=== PATIENT | female | born 1990 | race Two or more races ===

== ENCOUNTER 2023-01-21 07:34 | Emergency (ER) | payer OTHER ==
[~2023-01-21] VITALS: Ht 149.9 cm; Wt 62.6 kg
[2023-01-21 10:24] LABS: HEMATOCRIT 37.9 % (36.0-45.00); HEMOGLOBIN 13.1 g/dL (12.0-15.00); MEAN CELL VOLUME 94.9 fL (80.00-100.00); MEAN CORPUSCULAR HEMOGLOBIN 32.9 pg (27.00-32.0); MEAN CORPUSCULAR HGB CONC 34.6 g/dl (32.0-36.0); PLATELET COUNT 259 K/uL (150-450); RED CELL DISTRIBUTION WIDTH 12.6 % (11.5-14.5)
[2023-01-21 10:44] LABS: PH,URINE 6.5 (5.0-8.0); URINE APPEARANCE Clear; URINE BILIRRUBIN Negative (NEGATIVE); URINE BLOOD Negative; URINE COLOR Yellow; URINE GLUCOSE Negative (NEGATIVE); URINE LEUKOCYTE Trace; URINE NITRATE Negative; URINE PROTEIN Negative (NEGATIVE); URINE UROBILINOGEN 0.2 E.U./dl
[2023-01-21 10:45] LABS: URINE EPITHELIAL CELLS 54.8 uL (0.0-38.8); URINE RBC 10.7 uL (0.0-20.8); URINE WBC 12.5 uL (0.0-23.2)
[2023-01-21 11:20] LABS: CALCIUM 9.1 mg/dL (8.5-10.1); CREATININE SERUM 0.54 mg/dL (0.55-1.02); GFR 130.02; POTASSIUM 3.4 mEq/L (3.5-5.1)
== END 2023-01-21 15:36 | disposition home or self-care (01) ==
LOC: ER 07:34
PROVIDERS: General Practice
DX: O26.891 Other specified pregnancy related conditions, first trimester (principal); Z3A.12 12 weeks gestation of pregnancy; R10.2 Pelvic and perineal pain

== ENCOUNTER 2023-01-24 11:15 | Day surgery (SDC) | payer OTHER ==
[~2023-01-24] VITALS: Ht 149.9 cm; Wt 62.6 kg
[2023-01-24 09:07] LABS: HEMATOCRIT 36.6 % (36.0-45.00); HEMOGLOBIN 13.2 g/dL (12.0-15.00); MEAN CELL VOLUME 91.9 fL (80.00-100.00); MEAN CORPUSCULAR HGB CONC 35.9 g/dl (32.0-36.0); PLATELET COUNT 256 K/uL (150-450); RED BLOOD COUNT 3.98 M/uL (4.00-6.00); RED CELL DISTRIBUTION WIDTH 12.6 % (11.5-14.5)
[2023-01-24 09:08] LABS: URINE APPEARANCE Cloudy; URINE BILIRRUBIN Negative (NEGATIVE); URINE BLOOD Large; URINE COLOR Yellow; URINE GLUCOSE Negative (NEGATIVE); URINE LEUKOCYTE Trace; URINE NITRATE Negative; URINE PROTEIN Trace (NEGATIVE)
[2023-01-24 09:09] LABS: URINE EPITHELIAL CELLS 97.6 uL (0.0-38.8); URINE RBC 185.1 uL (0.0-20.8); URINE WBC 23.9 uL (0.0-23.2)
[2023-01-24 09:42] LABS: CALCIUM 8.9 mg/dL (8.5-10.1); CREATININE SERUM 0.55 mg/dL (0.55-1.02); GFR 127.29; POTASSIUM 3.62 mEq/L (3.5-5.1)
[2023-01-24 09:51] LABS: INR 1.06; PARTIAL THROMBOPLASTIN TIME 26.7 SECONDS (22.0-34.0); PROTHROMBIN TIME 11.1 SECONDS (9.0-11.5)
== END 2023-01-24 21:50 | disposition home or self-care (01) ==
LOC: O/R 11:15 → CIR.AMB 11:15 → SEC-K 11:15 → ER 11:15 → CIR.AMB 11:15 → SEC-K 14:35 → O/R 14:35 → CIR.AMB 21:50
PROVIDERS: ATTEND General Practice
DX: O02.1 Missed abortion (principal); O72.2 Delayed and secondary postpartum hemorrhage; Z20.822 Contact with and (suspected) exposure to COVID-19

== ENCOUNTER 2023-05-10 10:01 | Outpatient (CLI) | payer OTHER | END 2023-05-10 10:08 | disposition home or self-care (01) | LOC: SONOGRAMA 10:01 | PROVIDERS: ATTEND Specialist | DX: Z34.80 Encounter for supervision of other normal pregnancy, unspecified trimester (principal) ==

== ENCOUNTER 2023-05-13 06:53 | Day surgery (SDC) | payer OTHER ==
[2023-05-10 16:55] LABS: PH,URINE 6.5 (5.0-8.0); URINE APPEARANCE Clear; URINE BILIRRUBIN Negative (NEGATIVE); URINE BLOOD Negative; URINE COLOR Yellow; URINE GLUCOSE Negative (NEGATIVE); URINE LEUKOCYTE Negative; URINE NITRATE Negative; URINE PROTEIN Negative (NEGATIVE)
[2023-05-10 16:58] LABS: HEMOGLOBIN 13.1 g/dL (12.0-15.00); MEAN CELL VOLUME 92.7 fL (80.00-100.00); MEAN CORPUSCULAR HEMOGLOBIN 31.9 pg (27.00-32.0); MEAN CORPUSCULAR HGB CONC 34.4 g/dl (32.0-36.0); PLATELET COUNT 290 K/uL (150-450); RED CELL DISTRIBUTION WIDTH 12.5 % (11.5-14.5)
[2023-05-10 16:59] LABS: URINE EPITHELIAL CELLS 9.8 uL (0.0-38.8); URINE RBC 4.3 uL (0.0-20.8); URINE WBC 7.5 uL (0.0-23.2)
[2023-05-10 17:15] LABS: INR 1.04; PROTHROMBIN TIME 10.9 SECONDS (9.0-11.5)
[2023-05-13] MEDS ORDERED: CEFAZOLIN SODIUM 1,000 MG VIAL ONE ×2 (07:49→09:01)
[2023-05-13] MEDS ORDERED: OXYTOCIN 10 UNITS/ML VIAL ONE (08:54)
[2023-05-13] MEDS ORDERED: POVIDONE-IODINE 118 ML BOTT TOP ONE (08:54)
[2023-05-16] MEDS ORDERED: CEFAZOLIN SODIUM 1,000 MG VIAL IV ONE (09:30)
[2023-05-16] MEDS ORDERED: OXYTOCIN 10 UNITS/ML VIAL IV ONE (09:45)
[2023-05-16] MEDS ORDERED: POVIDONE-IODINE 118 ML BOTT TOP ONE (09:45)
== END 2023-05-13 15:20 | disposition home or self-care (01) ==
LOC: CIR.AMB 06:53
PROVIDERS: ATTEND Specialist
DX: O02.1 Missed abortion (principal); O72.2 Delayed and secondary postpartum hemorrhage

== ENCOUNTER → 2023-11-16 11:35 | Outpatient (CLI) | payer OTHER | END | disposition home or self-care (01) | LOC: PRENATAL 11:35 | PROVIDERS: ATTEND Obstetrics & Gynecology Maternal & Fetal Medicine | DX: Z76.1 Encounter for health supervision and care of foundling (principal) ==

== ENCOUNTER → 2024-07-26 09:59 | Outpatient (CLI) | payer OTHER | END | disposition home or self-care (01) | LOC: PRENATAL 09:59 | PROVIDERS: ATTEND Obstetrics & Gynecology Maternal & Fetal Medicine | DX: Z76.1 Encounter for health supervision and care of foundling (principal) ==